=== PATIENT | female | born 1995 | race African-American/Black ===

== ENCOUNTER 2025-05-31 16:10 | Emergency (ER) | payer MEDICAID ==
[~2025-05-31] VITALS: Ht 160 cm; Wt 103.7 kg
[2025-05-31 16:20] VITALS: BP 114/77; PULSE 85; RESP 16; O2SAT 99
--- NOTE | 2025-05-31 16:34 | Physician Documentation ---
History of Present Illness ~ Chief Complaint: Knee Pain Stated Complaint: KNEE PAIN Time Seen by MD: 16:34 HPI Patient is a 29-year-old female that presents to the emergency department for evaluation of left knee pain x1 month. Patient reports that she bumped her knee on a coffee table approximately 1 month ago. She reports that in certain positions the knee still hurts sometimes although negative with any point tenderness today or pain with palpation. Patient reports that she is able to ambulate without difficulty. Patient reports that after standing on her knee for extended periods of time sometimes there is pain in the knee. There complaints at this time. Patient denies fever swelling erythema. Medication Reconciliation Allergies: Coded Allergies: No Known Allergies (Unverified , 05/31/25) Review of Systems ROS As stated above in the HPI, otherwise all systems are reviewed and negative. Physical Exam Vital Signs: Temperature: 98.6, Source: Temporal, Heart Rate: 85, Respiratory Rate: 16, BP: 114/77, Pulse Oximetry: 99, Weight: 103.700 Oxygen Flow Rate: 0 Physical Exam VITALS: Reviewed and as above. GENERAL: Alert, no apparent distress. HEENT: Normocephalic, atraumatic, PERRL, EOMI, dry mucosa, no erythema RESPIRATORY: Lungs clear, normal breath sounds, no respiratory distress. CHEST: No accessory muscle use, no retractions CV: Regular rate, rhythm, no edema, no murmur, No: JVD GI: Soft, non-tender, bowels sounds present, no rebound, guarding, or rigidity BACK: No CVA tenderness, or swelling MUSCULOSKELETAL No deformities, no edema, Anterior/posterior/varus/valgus/Ruthy's tests negative. Patella in place. No instability of knee. Negative Ballottement test. Neg axial load. SKIN: Warm and dry, no rash NEURO: Oriented x4, No motor or sensory deficit PSYCH: Normal mood and affect, no agitation Progress Results/Orders Results/Orders Vital Signs 05/31/25 16:20 Temp 98.6 Pulse 85 Resp 16 B/P (MAP) 114/77 Pulse Ox 99 O2 Flow Rate 0 Medical Decision Making Findings Patient presents with left knee pain. Given history, exam and workup patient likely has possible ligamentous, muscle strain, arthritic changes. I have low suspicion for fracture, dislocation, significant ligamentous injury, septic arthritis, gout flare, new autoimmune arthropathy, or gonococcal arthropathy. Anterior/posterior/varus/valgus/Ruthy's tests negative. Patella in place. No instability of knee. Negative Ballottement test. Neg axial load. Next knee wrapped with Socrates bandage. Patient given instructions for Tylenol ibuprofen as needed for discomfort. Patient given instructions for rest ice elevation as tolerated. Patient will follow up with primary care provider. Provided with strict return precautions. Departure Disposition: HOME / SELF CARE / HOMELESS Impression: Primary Impression: Knee pain Condition: Stable Discharge Instructions: Acute Knee Pain, Adult Additional Instructions: Patient presents with left knee pain. Given history, exam and workup patient likely has possible ligamentous, muscle strain, arthritic changes. I have low suspicion for fracture, dislocation, significant ligamentous injury, septic a rthritis, gout flare, new autoimmune arthropathy, or gonococcal arthropathy. Anterior/posterior/varus/valgus/Ruthy's tests negative. Patella in place. No instability of knee. Negative Ballottement test. Neg axial load. Next knee wrapped with Socrates bandage. Patient given instructions for Tylenol ibuprofen as needed for discomfort. Patient given instructions for rest ice elevation as tolerated. Please follow up with her primary care provider. Patient is a walk- in clinic and he will top walk-in clinic all accept patient is on daily basis. Return to the emergency department if you have any worsening or recurrent symptoms or any additional concerning symptoms that we discussed here today i.e. fever swelling redness inability to ambulate or any other concerning symptoms that we discussed here today. Referrals: NO PRIMARY CARE PROVIDER (PCP) Education Educated: Patient Educated regarding: diagnosis, treatment, need for follow up Signature Scribe Signature: A Attestation: Scribed for Yelena Riddle by NEIL Sheets . 05/31/25 16:40 YELENA RIDDLE May 31, 2025 16:34
[2025-05-31 17:43] VITALS: TEMP 98.6
== END 2025-05-31 17:46 | disposition home or self-care (01) ==
LOC: ER 16:11
DX: M25.562 Pain in left knee (principal)
CPT/HCPCS: 99282